=== PATIENT | female | born 1950 | race Two or more races ===

== ENCOUNTER 2019-10-16 12:49 | Outpatient (CLI) | payer OTHER ==
[2019-10-21] MEDS ORDERED: HYDR25TA4 PO (11:24)
[2019-10-21] MEDS ORDERED: ASPI-992 PO (11:24)
== END 2019-10-16 23:59 | disposition home or self-care (01) ==
LOC: LAB 12:49
DX: Z01.812 Encounter for preprocedural laboratory examination (principal); Z11.59 Encounter for screening for other viral diseases
CPT/HCPCS: C9803; U0003

== ENCOUNTER 2019-10-19 05:33 | Inpatient (IN) | payer OTHER ==
[~2019-10-19] VITALS: Ht 162.6 cm; Wt 90.7 kg
[2019-10-19] VITALS (12 sets, daily range): BP systolic 112–132; BP diastolic 52–75
[2019-10-19] MEDS ORDERED: ANESTHESIA TRAY IN PYXIS 1 EA TRAY MC ONE (06:10)
[2019-10-19] MEDS ORDERED: BACITRACIN 50000 UNITS/VIAL ONE (06:10)
[2019-10-19] MEDS ORDERED: HYDROMORPHONE INJ 2 MG/ML DISP.SYRIN ONE (07:06)
[2019-10-19] MEDS ORDERED: TRANEXAMIC ACID 3,000 MG in SODIUM CHLORIDE IRRIG SOLUTION 70 ML IR ONE (07:30)
[2019-10-19] MEDS ORDERED: ONDANSETRON HCL/PF 4 MG/2 ML VIAL IVP PRN (09:30)
[2019-10-19] MEDS ORDERED: BISACODYL SUPP (10 MG) 10 MG/SUPP.RECT SUPP.RECT RC PRN (09:30)
[2019-10-19] MEDS ORDERED: ACETAMINOPHEN 325 MG TABLET PO PRN (09:30)
[2019-10-19] MEDS ORDERED: HYDROCODONE/APAP 5/325MG 1 EACH TABLET PO PRN (09:30)
[2019-10-19] MEDS ORDERED: ZOLPIDEM TARTRATE 5 MG TABLET PO PRN (09:30)
[2019-10-19] MEDS ORDERED: SENNOSIDES 8.6 MG TABLET PO PRN (09:30)
[2019-10-19] MEDS ORDERED: DOCUSATE SODIUM 250 MG CAPSULE PO PRN (09:30)
--- NOTE | 2019-10-19 10:00 | NUR ---
MS/RN OPENING NOTES Received patient from OR. Patient A&O x 2, Divehi speaking. Breathing even and non-labored on 4L oxygen via NC. VSS, afebrile, no SOB noted. No cardiac distress noted. IV access noted on the L AC # 18, patent and intact, and infusing well. Sensation from all peripheral extremities noted. No pain or discomfort at this time. Orders acknowledged in the chart. Will continue to monitor patient. Addendum: 10/19/19 at 1625 by RAULITO LUCIO RN In addition to above, Inventory check list done and noted.
--- NOTE | 2019-10-19 11:00 | NUR ---
MS/RN NOTES Patient remains stable in bed. VSS, afebrile, no SOB noted. Will continue to monitor for any changes of condition.
[2019-10-19] MEDS ORDERED: GLIM2TAB31 PO (11:39)
[2019-10-19] MEDS ORDERED: METF-442 PO (11:39)
[2019-10-19] MEDS ORDERED: HYDR-500 PO (11:39)
[2019-10-19] MEDS ORDERED: MULT1TAB69 PO (11:39)
[2019-10-19] MEDS ORDERED: ATEN1TAB3 PO (11:39)
--- NOTE | 2019-10-19 11:39 | NUR ---
SECONDARY HISTORY TEACHER/MED RECON HOME MEDICATION UPDATED. INFORMATION OBTAINED FROM LARA [phone] DAUGHTER IN LAW. ALSO, LARA CONFIRMED ALLERGY TO MOTRIN WITH UNKNOWN A/R TO ASPIRIN. PRIMARY NURSE AWARE.
[2019-10-19] MEDS: IV D5/0.45 NACL 1,000 ML IV PRN ×2 (11:45→21:37)
--- NOTE | 2019-10-19 12:00 | NUR ---
MS/RN NOTES Patient exhibits no changes in condition. VSS, afebrile, no SOB noted. Will continue to monitor for any changes of condition.
--- NOTE | 2019-10-19 12:50 | NUR ---
MS/RN NOTES Patient complains of 7/10 aching pain on the left knee. Gave norco 2 tablets for pain. Will continue to monitor.
[2019-10-19] MEDS: ANCEF 1 GM/50 ML D5W IV SCH ×4 (15:05→22:42)
[2019-10-19] MEDS ORDERED: MAG HYDROX/AL HYDROX/SIMETH 30 ML UDC PO PRN (16:30)
[2019-10-19] MEDS ORDERED: HYDROMORPHONE 1 MG/1 ML DISP.SYRIN IV ONE (16:30)
[2019-10-19] MEDS ORDERED: diphenhydrAMINE HCL 25 MG CAPSULE PO PRN (16:30)
[2019-10-19] MEDS: FAMOTIDINE (20 MG) 20 MG TABLET PO SCH (16:52)
[2019-10-19] MEDS ORDERED: ENOXAPARIN SODIUM 40 MG/0.4 ML DISP.SYRIN SQ SCH (17:30)
--- NOTE | 2019-10-19 19:00 | NUR ---
MS/RN CLOSING NOTES Patient resting in bed, A&O x 2, Maltese speaking. Patient complaints of 10/10 aching pain on the left leg, gave dilaudid at 1652. Breathing even and non-labored on 2L oxygen via NC, saturating well. No cardiac distress noted. IV access noted on the L AC # 18, patent and intact, and infusing well. Sensation from all peripheral extremities noted. Will endorse to cnc machinist 2nd shift nurse.
--- NOTE | 2019-10-19 19:30 | NUR ---
MS/RN OPENING NOTES RECEIVED PATIENT RESTING IN BED. PATIENT IS ALERT AND ORIENTED X 3. PATIENT IS ABLE TO UNDERSTAND SOME HAITIAN, CANNOT COMMUNICATE IN HAITIAN, CAN MAKE NEEDS KNOWN TO STAFF MEMBERS. PATIENT IS S/P LEFT TOTAL KNEE ARTHROPLASTY, UPON ASSESSMENT PATIENTS DRESS IS INTACT AND NO ACTIVE BLEEDING NOTED. PATIENT HAS COLD PACK APPLIED TO SURGICAL SITE. PATIENTS VITALS SIGNS ARE WITHIN NORMAL LIMITS. IV ACCESS INTACT ON RIGHT AC #18G RUNNING D5 1/2 AT 125 ML/HR. WILL CONTINUE TO MONITOR PATIENT FOR PAIN MANAGEMENT. SAFETY MEASURES ARE IN PLACE, BED IS LOCKED AND PLACED IN THE LOW POSITION, SIDE RAILS UP X3. CALL LIGHT IS WITHIN REACH. WILL CONTINUE TO MONITOR PATIENT THROUGH OUT SHIFT. Addendum: 10/19/19 at 2308 by CLARISSA ARAIZA RN IV ACCESS IS NOTED ON LEFT AC #18G.
[2019-10-19] MEDS: HYDROCODONE/APAP 10/325MG 1 EA TABLET PO PRN (21:37)
--- NOTE | 2019-10-19 21:40 | NUR ---
MS/RN NOTES PATIENT WAS EXPERIENCING PAIN AT SURGICAL SITE, NORCO 10-325 PO WAS GIVEN. WILL CONTINUE TO MONITOR PATIENT.
[2019-10-20] MEDS: HYDROCODONE/APAP 10/325MG 1 EA TABLET PO PRN ×4 (06:03→23:06)
--- NOTE | 2019-10-20 06:05 | NUR ---
MS/RN NOTES PATIENT WAS COMPLAINING OF PAIN AT SURGICAL SITE, LEFT KNEE. NORCO 10-325 PO WAS GIVEN. WILL CONTINUE TO MONITOR PATIENT.
[2019-10-20] MEDS: IV D5/0.45 NACL 1,000 ML IV PRN ×2 (06:11→23:06)
--- NOTE | 2019-10-20 06:30 | NUR ---
MS/RN CLOSING NOTES PATIENT RESTING IN BED. PATIENT IS ALERT AND ORIENTED X 3. PATIENT IS S/P LEFT TOTAL KNEE ARTHROPLASTY 10/18/19, PATIENTS DRESSING IS INTACT AND NO ACTIVE BLEEDING NOTED. IV ACCESS INTACT ON LEFT AC #18G RUNNING D5 /2 AT 125 ML/HR. ALL PATIENTS NEEDS HAVE BEEN MET AND ATTENDED TO DURING SHIFT. SAFETY MEASURES ARE IN PLACE, BED IS LOCKED AND PLACED IN THE LOW POSITION, SIDE RAILS UP X 3. CALL LIGHT IS WITHIN REACH. WILL ENDORSE CARE TO DAY SHIFT.
--- NOTE | 2019-10-20 07:30 | NUR ---
MS RN OPEN NOTES PATIENT IS ALERT RESTING IN BED. NO SIGNS OF DISTRESS WITH 2L OF NASAL CANNULA. IV R AC #18G INTACT RUNNING D5 1/2 NS AT 125ML/HR. PATIENT IS COMFORTABLE LAYING IN BED. BED IS IN LOW POSITION, SIDE RAILS UP X 2 FOR SAFETY. CALL LIGHT WITHIN REACH. WILL CONTINUE TO MONITOR.
[2019-10-20 08:09] VITALS: BP 135/72
[2019-10-20 08:40] LABS: BASOPHILS % (AUTO) 0.2 % (0.0-2.0); EOSINOPHILS % (AUTO) 0.1 % (0.0-6.0); HEMATOCRIT 38 % (33-45); HEMOGLOBIN 12.2 g/dL (11.5-14.8); LYMPHOCYTES # (AUTO) 1.3 /CMM (0.8-4.8); LYMPHOCYTES % (AUTO) 10.7 % (20.0-44.0); MEAN CORPUSCULAR HGB CONC 32 g/dl (31.0-36.0); MEAN CORPUSCULAR VOLUME 89 fL (82-100); MONOCYTES # (AUTO) 0.9 /CMM (0.1-1.30); MONOCYTES % (AUTO) 7.5 % (2.0-12.0); NEUTROPHILS # (AUTO) 9.9 /CMM (1.8-8.9); NEUTROPHILS % (AUTO) 81.5 % (43.0-81.0); PLATELET COUNT (AUTO) 185 /CMM (150-450); RED BLOOD CELL COUNT(AUTO) 4.25 MIL/uL (4.0-5.2); WHITE BLOOD COUNT (AUTO) 12.1 K/uL (4.3-11.0)
[2019-10-20 08:55] LABS: CREATININE 0.7 mg/dL (0.6-1.3); MAGNESIUM 1.7 mg/dL (1.8-2.4); PHOSPHORUS 2.9 mg/dL (2.5-4.9)
[2019-10-20] MEDS: ASPIRIN 325 MG TABLET PO SCH ×2 (09:04→16:59)
[2019-10-20] MEDS: FAMOTIDINE (20 MG) 20 MG TABLET PO SCH ×2 (09:05→16:59)
[2019-10-20 09:16] LABS: POTASSIUM 2.6 mmol/L (3.5-5.1)
--- NOTE | 2019-10-20 09:19 | NUR ---
RN NOTES RECEIVED CRITICAL LEVEL POTASSIUM FROM LAB. INFORMED DR. BENTON PRESENT ON THE FLOOR. ORDERED POTASSIUM CHLORIDE 60 MEQ X 1. ORDERS CLARIFIED AND READ BACK WITH MD. NOTED AND CARRY OUT.
[2019-10-20] MEDS ORDERED: POTASSIUM CHLORIDE 10 MEQ TABLET.SA PO ONE (09:30)
[2019-10-20] MEDS ORDERED: hydrOXYzine 10 MG TABLET PO PRN (09:30)
--- NOTE | 2019-10-20 09:51 | NUR ---
RN NOTES K DUR 10MEQ X 6 TABS NOT ADMINISTERED PHARMACY CHANGED SCHEDULED TO K DUR 20 MEQ X 3 DOSES.
[2019-10-20] MEDS: METFORMIN 500 MG TABLET PO SCH ×2 (09:56→17:03)
[2019-10-20] MEDS: POTASSIUM CHLORIDE 10 MEQ TABLET.SA PO SCH ×3 (09:56→12:57)
[2019-10-20] MEDS ORDERED: hydrOXYzine PAMOATE 25 MG CAPSULE PO PRN (10:00)
[2019-10-20] MEDS ORDERED: DEXTROSE 50%-WATER 50 ML DISP.SYRIN IV PRN (10:30)
--- NOTE | 2019-10-20 10:30 | NUR ---
RN NOTES PATIENT WAS SEEN BY PT AND PLACED CPM MACHINE ON THE LEFT LOWER EXTREMITY. PATIENT TOLERATED WELL.
[2019-10-20] MEDS: ATENOLOL 50 MG TABLET PO SCH (12:04)
[2019-10-20] MEDS: BLOOD SUGAR DIAGNOSTIC 1 EACH STRIP VI SCH ×3 (12:13→21:58)
[2019-10-20] MEDS: HYDROCHLOROTHIAZIDE 25 MG TABLET PO SCH (12:13)
[2019-10-20] MEDS: INSULIN REGULAR, HUMAN 100 UNIT/ML 3 ML VIAL SQ PRN ×2 (12:19→17:15)
--- NOTE | 2019-10-20 14:00 | NUR ---
RN NOTES PATIENT WALKED WITH PT WITH A WALKER. PATIENT TOLERATED WELL.
[2019-10-20] MEDS: HYDROMORPHONE 1 MG/1 ML DISP.SYRIN IV PRN (14:05)
--- NOTE | 2019-10-20 14:15 | NUR ---
RN NOTES PAGE DR. BENTON, TO CLARIFY ORDERS REGARDING ASPIRIN AND LOVENOX IF SHE WANTS BOTH MEDICATIONS GIVEN OR TO DISCONTINUE ONE. AWAITING FOR MD CALL BACK.
[2019-10-20] MEDS ORDERED: NA PHOS,M-B/NA PHOS,DI-BA 1 EA ENEMA RC PRN (14:30)
[2019-10-20] MEDS ORDERED: BISACODYL SUPP (10 MG) 10 MG/SUPP.RECT SUPP.RECT RC PRN (14:30)
--- NOTE | 2019-10-20 14:30 | NUR ---
RN NOTES RECEIVED NEW ORDER FROM TO DISCONTINUE LOVENOX. ORDER WAS READ BACK AND CLARIFIED. ORDER WAS CARRIED OUT.
--- NOTE | 2019-10-20 14:35 | NUR ---
RN NOTE PATIENT SEEM AMD EVALUATED BY DR. RODRIGUEZ, WITH NEW ORDERS MADE. NOTED AND CARRIED OUT.
[2019-10-20] MEDS ORDERED: POTASSIUM CHLORIDE 20 MEQ TAB.PRT.SR PO ONE (15:00)
[2019-10-20 16:12] VITALS: BP 129/71
[2019-10-20] MEDS: Magnesium 1GM/D5W 100ML PREMIX 100 ML IV SCH ×2 (16:14→17:16)
[2019-10-20] MEDS: DOCUSATE SODIUM 100 MG CAPSULE PO SCH (16:59)
--- NOTE | 2019-10-20 19:18 | NUR ---
RN CLOSED NOTES PATIENT IS ORIENTED CALM AND COOPERATIVE. NO SIGNS OF DISTRESS IN 2L OF NASAL CANNULA. IV R AC #18G INTACT RUNNING D5 NS AT 125 MLS/HR. SCHEDULED MEDICATION WERE GIVEN. MAGNESIUM AND POTASSIUM WERE LOW AND BOTH WERE REPLACED ORDERED. PAIN MEDICATION WAS GIVEN SCHEDULED. BED IS IN LOW POSITION WITH SIDE RAILS UP X 2 FOR SAFETY. CALL LIGHT WITHIN REACH. WILL ENDORSE TO THE NEXT SHIFT.
--- NOTE | 2019-10-20 19:45 | NUR ---
rn notes/assessment: transferred pt to room 326-2, with all belongings sent with pt upon transfer to new room. pt s/p left total knee arthroplasty on 10/18, by dr kelly, dressing in placed, c/d/i, no active bleeding noted. lle offloaded on pillow. pt ana speaking, son molly help with translation. pt worked with PT today, cpm 30 degree flexion, pt able to stand up/get out of bed, but not safe ambulating per notes. safety precautions for fall initiated, call light in reach, will continue monitoring pt.
[2019-10-20 20:00] VITALS: BP 120/59
--- NOTE | 2019-10-20 20:32 | NUR ---
rn notes: spoked with son molly 3x on the phone to translate for the pt. pt inisiting to get up and walk to the bathroom to void, however per PT not safe to ambulate yet, only offer bedpan and will come back for therapy again tomorrow. pt kept holding her urine. placed on bed reynolds 3x, even switch chief inspector to female, but still pt uncooperative. son hang up the phone already. legal intern made aware
[2019-10-20] MEDS: *INSULIN REGULAR(HUMULIN R)HUM 100 UNIT/ML VIAL SQ PRN (21:59)
--- NOTE | 2019-10-20 22:27 | NUR ---
rn notes: pt has no urine output for 4hrs, bladder scan performed showing 910ml, notified epic md director of communications, per md to put indwelling shin catheter. order read back, verified and carried out.
--- NOTE | 2019-10-20 23:07 | NUR ---
prn norco 10/325: pt c/o post op pain left knee, s/p left knee arthroplasty on 10/26, requesting for pain medication, prn norco 10/325 mg tab po administered to pt at this time. all communications translated in ana language with help of pt's daughter, spoke over the phone.
--- NOTE | 2019-10-20 23:23 | NUR ---
rn notes: assisted roving frame tender in providing bed bath and complete linen change to pt. all communication translated in ana with help of pt's daughter.
--- NOTE | 2019-10-21 02:00 | NUR ---
rn notes: pt sleeping, appears calm and comfortable, no facial grimace noted, pt remains on 3l oxygen. lle offloaded on pillows. call light within reach,
[2019-10-21] MEDS: BLOOD SUGAR DIAGNOSTIC 1 EACH STRIP VI SCH ×4 (06:27→22:27)
[2019-10-21] MEDS: INSULIN REGULAR, HUMAN 100 UNIT/ML 3 ML VIAL SQ PRN ×2 (06:29→12:31)
--- NOTE | 2019-10-21 06:50 | NUR ---
end of shift report: prn norco 10/325 mg tab po administered to pt for c/o 10/26 post op pain. pt remains on 3L oxygen via nc. iv access remains patent and flushing well, infusing with d5 1/2 ns at 125ml/hr. remains with shin catheter, bag draining via gravity. lle offloaded on pillows. dressing c/d/i, no active bleeding noted. PLAN OF CARE: DC plan home vs ARU. Cleared from ortho, f/u with dr pritchett in 1-2 weeks. okay for rn to change dressing per md order. vs remains stable, needs attended. safety precautions for fall remains engaged, call light in reach, will endorse to day rn for continuity of care.
--- NOTE | 2019-10-21 07:50 | NUR ---
ms rn received on bed,awake,alert,oriented x3,little lethargic,not in any form of distress, respirations even and unlabored,no sob noted.left leg surgery w/ dressing dry and intact,denies pain at this time,all needs attended.
[2019-10-21 08:15] LABS: BASOPHILS # (AUTO) 0.1 /CMM (0.0-0.2); BASOPHILS % (AUTO) 0.4 % (0.0-2.0); CREATININE 0.6 mg/dL (0.6-1.3); EOSINOPHILS % (AUTO) 1.1 % (0.0-6.0); HEMATOCRIT 33 % (33-45); HEMOGLOBIN 10.7 g/dL (11.5-14.8); LYMPHOCYTES # (AUTO) 1.6 /CMM (0.8-4.8); LYMPHOCYTES % (AUTO) 10.4 % (20.0-44.0); MAGNESIUM 1.8 mg/dL (1.8-2.4); MEAN CORPUSCULAR HGB CONC 33 g/dl (31.0-36.0); MEAN CORPUSCULAR VOLUME 88 fL (82-100); MONOCYTES % (AUTO) 6.4 % (2.0-12.0); NEUTROPHILS # (AUTO) 12.6 /CMM (1.8-8.9); NEUTROPHILS % (AUTO) 81.7 % (43.0-81.0); PHOSPHORUS 1.4 mg/dL (2.5-4.9); PLATELET COUNT (AUTO) 160 /CMM (150-450); RED BLOOD CELL COUNT(AUTO) 3.71 MIL/uL (4.0-5.2); WHITE BLOOD COUNT (AUTO) 15.5 K/uL (4.3-11.0)
[2019-10-21 08:17] VITALS: BP 117/61
[2019-10-21 08:24] LABS: CALCIUM, SERUM 8.1 mg/dL (8.5-10.1)
[2019-10-21 08:28] LABS: POTASSIUM 2.8 mmol/L (3.5-5.1)
[2019-10-21] MEDS ORDERED: ATENOLOL/CHLORTHALIDONE 1 TAB TABLET PO SCH (09:00)
--- NOTE | 2019-10-21 09:40 | NUR ---
ms patterson breakfast served,due meds given,tolerated well.
--- NOTE | 2019-10-21 09:55 | NUR ---
ms rn received a critical level for potassium and phosphorus, reported to dr. severo blank/ orders made and carried out.
[2019-10-21] MEDS: GLIMEPIRIDE 1 MG TABLET PO SCH (09:59)
[2019-10-21] MEDS: HYDROMORPHONE 1 MG/1 ML DISP.SYRIN IV PRN (09:59)
[2019-10-21] MEDS: FAMOTIDINE (20 MG) 20 MG TABLET PO SCH ×2 (09:59→17:24)
[2019-10-21] MEDS: ASPIRIN 325 MG TABLET PO SCH ×2 (09:59→17:24)
[2019-10-21] MEDS: MULTIVIT W/MINERALS 1 TAB TABLET PO SCH (10:00)
[2019-10-21] MEDS: METFORMIN 500 MG TABLET PO SCH ×2 (10:00→17:24)
[2019-10-21] MEDS: DOCUSATE SODIUM 100 MG CAPSULE PO SCH ×2 (10:00→17:24)
[2019-10-21] MEDS: HYDROCHLOROTHIAZIDE 25 MG TABLET PO SCH (10:01)
[2019-10-21] MEDS: ATENOLOL 50 MG TABLET PO SCH (10:04)
--- NOTE | 2019-10-21 10:20 | NUR ---
ms rn was seen by dr. severo blank/ orders made and carried out.
[2019-10-21] MEDS ORDERED: HYDR25TA4 PO (11:24)
[2019-10-21] MEDS ORDERED: ASPI-992 PO (11:24)
[2019-10-21] MEDS ORDERED: K PHOS NEUTRAL 250 MG TABLET PO ONE (12:00)
[2019-10-21] MEDS: POTASSIUM CHLORIDE 20 MEQ TAB.PRT.SR PO SCH ×3 (12:20→15:57)
--- NOTE | 2019-10-21 15:30 | NUR ---
ms rn relayed cxr result to dr. elkins, waiting for her to reply.
[2019-10-21 16:00] VITALS: BP 139/60
[2019-10-21] MEDS: IV D5/0.45 NACL 1,000 ML IV PRN (18:45)
[2019-10-21] MEDS ORDERED: CEFTRIAXONE 1GM BAG (ER ONLY) 1 GM/50 ML PIGGYBACK IV SCH (19:30)
[2019-10-21] MEDS ORDERED: AZITHROMYCIN 500 MG in IV D5W 250 ML IV SCH ×2 (19:30→20:00)
--- NOTE | 2019-10-21 19:36 | NUR ---
MS RN OPENING NOTES PATIENT AWAKE IN BED. A/OX3. PRIMARY LANGUAGE JANAE. ON 3L NC. NO S/S OF ACUTE RESPIRATORY DISTRESS; BREATHING IS EVEN AND UNLABORED. NO S/S OF PAIN NOTED. IV PRESENT ON LEFT AC, SIZE 18, INTACT & PATENT WITH D5 1/2 NS RUNNING AT 125 ML/HR. LEFT KNEE DRESSING DRY AND INTACT; ELEVATED ON PILLOW. SAFETY MEASURES IN PLACE AND PATIENT'S NEEDS MET. BED LOCKED, ALARM ON, SIDE RAILS X2, CALL LIGHT WITHIN REACH. WILL CONTINUE TO MONITOR.
--- NOTE | 2019-10-21 19:50 | NUR ---
MS RN NOTES SCHEDULED IVPB ROCEPHIN 1G NOT STOCKED IN MED ROOM; CALLED PHARMACY, NO RESPONSE. AWAITING FOR CHARGE NURSE TO OVERRIDE MEDICATION IN [facility].
[2019-10-21 20:00] VITALS: BP_SYST 123; BP_DIAS 71; BP_DIAS 72
--- NOTE | 2019-10-21 20:10 | NUR ---
MS RN NOTES SCHEDULED IVPB ZITHROMAX NOT STOCKED IN MED ROOM. FAXED MED ORDER TO NURSING JUNIOR ANALYST TO PULL FROM NIGHT LOCKER. AWAITING MEDICATION.
[2019-10-21] MEDS ORDERED: AZITHROMYCIN 500 MG VIAL ONE (20:26)
[2019-10-21] MEDS ORDERED: CEFTRIAXONE 1 G VIAL ONE (20:32)
[2019-10-21] MEDS: CEFTRIAXONE 1 G in IV D5W 50 ML IV SCH (20:36)
[2019-10-21] MEDS: HYDROCODONE/APAP 10/325MG 1 EA TABLET PO PRN (20:59)
--- NOTE | 2019-10-21 21:07 | NUR ---
MS RN NOTES PATIENT SENT DOWN TO RADIOLOGY FOR CT PULMONARY ANGIOGRAM. CONSENT ATTAINED FROM SON, NAVIN, VIA TELPHONE. PATIENT TRANSFERRED VIA GURNEY.
[2019-10-21] MEDS ORDERED: IOHEXOL-350 100 ML VIAL IV ONE (21:11)
[2019-10-21] MEDS ORDERED: IV NS 0.9% 250 ML IV ONE (21:13)
--- NOTE | 2019-10-21 21:32 | NUR ---
MS RN NOTES PATIENT BACK FROM CT
[2019-10-22 06:31] LABS: BASOPHILS % (AUTO) 0.3 % (0.0-2.0); EOSINOPHILS % (AUTO) 2.6 % (0.0-6.0); HEMATOCRIT 31 % (33-45); LYMPHOCYTES # (AUTO) 1.3 /CMM (0.8-4.8); LYMPHOCYTES % (AUTO) 10.2 % (20.0-44.0); MEAN CORPUSCULAR HGB CONC 33 g/dl (31.0-36.0); MEAN CORPUSCULAR VOLUME 88 fL (82-100); MONOCYTES % (AUTO) 7.7 % (2.0-12.0); NEUTROPHILS # (AUTO) 10.3 /CMM (1.8-8.9); NEUTROPHILS % (AUTO) 79.2 % (43.0-81.0); PLATELET COUNT (AUTO) 154 /CMM (150-450); RED BLOOD CELL COUNT(AUTO) 3.47 MIL/uL (4.0-5.2)
[2019-10-22] MEDS: BLOOD SUGAR DIAGNOSTIC 1 EACH STRIP VI SCH ×4 (06:32→22:12)
[2019-10-22] MEDS: INSULIN REGULAR, HUMAN 100 UNIT/ML 3 ML VIAL SQ PRN ×2 (06:33→12:53)
[2019-10-22 06:37] LABS: CALCIUM, SERUM 8.4 mg/dL (8.5-10.1); CREATININE 0.7 mg/dL (0.6-1.3); MAGNESIUM 1.9 mg/dL (1.8-2.4); PHOSPHORUS 1.7 mg/dL (2.5-4.9)
[2019-10-22 06:44] LABS: APPEARANCE,URINE CLEAR (CLEAR); BILIRUBIN,URINE NEGATIVE (NEGATIVE); BLOOD, URINE MODERATE Ery/uL (NEGATIVE); COLOR,URINE YELLOW (YELLOW); KETONES,URINE NEGATIVE (NEGATIVE); LEUKOCYTE ESTERASE ,URINE NEGATIVE (NEGATIVE); NITRITE, URINE NEGATIVE (NEGATIVE); PH,URINE 6.5 (5.0-8.0); PROTEIN,URINE NEGATIVE (NEGATIVE); UGLUCOSE NEGATIVE (NEGATIVE); UROBILINOGEN,URINE 0.2 EU/dL (0.2)
[2019-10-22 06:48] LABS: POTASSIUM 2.6 mmol/L (3.5-5.1)
--- NOTE | 2019-10-22 06:52 | NUR ---
MS RN NOTES RECEIVED CRITICAL LAB RESULTS. CO2 LEVEL IS 42 AND POTASSIUM LEVEL IS 2.6. MANAGER OF DEVELOPMENT FIRMWARE DEVELOPER, PAIGE MAYER MADE AWARE
[2019-10-22] MEDS ORDERED: POTASSIUM CHLORIDE 10 MEQ/50 ML PREMIXED IVPB FOR PERIPHERAL LINE IV ONE (07:00)
--- NOTE | 2019-10-22 07:02 | NUR ---
MS RN NOTES RECEIVED ORDERS VIA TELEPHONE FOR 80 MEQ POTASSIUM IV OVER 5 HOURS FROM [employer], PAIGE MAYER.
--- NOTE | 2019-10-22 07:08 | NUR ---
MS RN NOTES VERIFIED ORDER FOR 80 MEQ POTASSIUM IV OVER 5 HOURS WITH PHARMACY. PER ALECIA, ONLY AVAILABLE REPLACEMENT FOR IV IS 10 MEQ PER 50 ML IVPB
[2019-10-22 07:16] LABS: BACTERIA,URINE Rare /HPF (None Seen); SQUAMOUS EPITHELIAL CELL,UR Rare /HPF (None Seen); WBC,URINE 0-2 /HPF (0-3)
--- NOTE | 2019-10-22 07:35 | NUR ---
MS RN NOTES RECEIVED PT IN BED, ASLEEP, EASILY AROUSED, A/O X3-4. JANAE SPEAKING ONLY, TRANSLATES BY SON/KANDICED THROUGH THE PHONE. PT ON SUPPLEMENTARY OXYGEN AT 3L VIA NC, WITH NO ACUTE RESPIRATORY DISTRESS NOTED. PT DENIES ANY PAIN OR DISCOMFORT AT THIS TIME. IVF D5 1/2 NS AT 125ML/HR TO LAC G18, INTACT AND FLUID INFUSING WELL. PER NIGHT NURSE POTASSIUM LEVEL AT 2.6 REPORTED TO IZZY LEWIS AND ORDERS RECEIVED; WILL ADMINISTER REPLACEMENT TODAY. FC IN PLACE WITH CLEAR YELLOW URINE. PT KEPT COMFORTABLE. CALL LIGHT KEPT WITHIN REACH. PT'S BED IN LOWEST, LOCKED POSITION WITH SRX3. WILL CONTINUE PLAN OF CARE.
--- NOTE | 2019-10-22 07:36 | NUR ---
MS RN CLOSING NOTES PATIENT SLEEPING IN BED. A/OX3. ON 3L NC. NO S/S OF ACUTE RESPIRATORY DISTRESS; BREATHING IS EVEN AND UNLABORED. NO S/S OF PAIN NOTED. IV PRESENT ON LEFT AC, SIZE 18, INTACT & PATENT. LEFT KNEE DRESSING DRY AND INTACT. SAFETY MEASURES IN PLACE AND PATIENT'S NEEDS MET. BED LOCKED, ALARM ON, SIDE RAILS X2, CALL LIGHT WITHIN REACH. WILL ENDORSE TO DAY SHIFT NURSE PLAN OF CARE.
[2019-10-22 08:00] VITALS: BP 125/71
[2019-10-22] MEDS: MULTIVIT W/MINERALS 1 TAB TABLET PO SCH (09:16)
[2019-10-22] MEDS: FAMOTIDINE (20 MG) 20 MG TABLET PO SCH ×2 (09:16→16:54)
[2019-10-22] MEDS: ASPIRIN 325 MG TABLET PO SCH ×2 (09:16→16:53)
[2019-10-22] MEDS: DOCUSATE SODIUM 100 MG CAPSULE PO SCH ×2 (09:16→16:53)
[2019-10-22] MEDS: GLIMEPIRIDE 1 MG TABLET PO SCH (09:16)
[2019-10-22] MEDS: ATENOLOL 50 MG TABLET PO SCH (09:17)
[2019-10-22] MEDS: POTASSIUM CL. PREMIX PERIPHER. 50 ML IV SCH ×8 (09:17→19:54)
[2019-10-22 09:29] VITALS: BP 125/71
[2019-10-22] MEDS ORDERED: MAGNESIUM HYDROXIDE 30 ML UDC PO PRN (10:00)
[2019-10-22] MEDS: METFORMIN 500 MG TABLET PO SCH ×2 (10:03→16:54)
[2019-10-22] MEDS ORDERED: K PHOS NEUTRAL 250 MG TABLET PO ONE (11:00)
--- NOTE | 2019-10-22 13:00 | NUR ---
MS RN NOTES PT REFUSED INSULIN 2U. WILL CONTINUE TO MONITOR.
[2019-10-22] MEDS ORDERED: FUROSEMIDE 40 MG/4 ML VIAL IV ONE (14:30)
[2019-10-22 16:00] VITALS: BP 132/72
--- NOTE | 2019-10-22 17:15 | NUR ---
MS RN NOTES FOUND A BOTTLE OF MEDICINE/METFORMIN AT BEDSIDE. INSTRUCTED SON/NAVIN OVER THE PHONE TO TRANSLATE REGARDING HOLDING METFOMIN DOSE UNTIL THE 7TH. DUE TO RECENT PROCEDURE OF CT LAST NIGHT WITH CONTRAST. RISK AND BENEFITS MADE AWARE. MEDICINE SENT TO PHARMACY TO KEEP. WILL CONTINUE TO MONITOR.
--- NOTE | 2019-10-22 17:49 | NUR ---
MS RN NOTES PT REFUSED INSULIN 2U. WILL CONTINUE TO MONITOR.
--- NOTE | 2019-10-22 18:55 | NUR ---
MS RN NOTES PT IN BED, ASLEEP, AWAKE, A/O X3-4. PT ON SUPPLEMENTARY OXYGEN AT 2L VIA NC, WITH NO ACUTE RESPIRATORY DISTRESS NOTED. PT DENIES ANY PAIN OR DISCOMFORT AT THIS TIME. PIC TO LAC G18, FLUSHED WITH NS, INTACT AND OPERATIONAL. ALL NEEDS AND CARE ATTENDED. FC IN PLACE WITH CLEAR YELLOW URINE. PT KEPT COMFORTABLE. CALL LIGHT KEPT WITHIN REACH. PT'S BED IN LOWEST, LOCKED POSITION WITH SRX3. WILL ENDORSE TO INCOMING NIGHT NURSE FOR CLAIRE.
--- NOTE | 2019-10-22 19:43 | NUR ---
MS RN OPENING NOTES PATIENT AWAKE IN BED. A/OX3. PRIMARY LANGUAGE JANAE. ON 3L NC. NO S/S OF ACUTE RESPIRATORY DISTRESS; BREATHING IS EVEN AND UNLABORED. NO S/S OF PAIN NOTED. IV PRESENT ON LEFT AC, SIZE 18, INTACT & PATENT. LEFT KNEE DRESSING DRY AND INTACT; ELEVATED ON PILLOW. SAFETY MEASURES IN PLACE AND PATIENT'S NEEDS MET. BED LOCKED, ALARM ON, SIDE RAILS X2, CALL LIGHT WITHIN REACH. WILL CONTINUE TO MONITOR
[2019-10-22 20:00] VITALS: BP 110/81
[2019-10-22] MEDS: AZITHROMYCIN 500 MG in IV D5W 250 ML IV SCH (21:03)
[2019-10-22] MEDS: CEFTRIAXONE 1 G in IV D5W 50 ML IV SCH (22:01)
[2019-10-22] MEDS: *INSULIN REGULAR(HUMULIN R)HUM 100 UNIT/ML VIAL SQ PRN (22:14)
[2019-10-23] MEDS: BLOOD SUGAR DIAGNOSTIC 1 EACH STRIP VI SCH ×4 (06:31→22:05)
[2019-10-23] MEDS: INSULIN REGULAR, HUMAN 100 UNIT/ML 3 ML VIAL SQ PRN ×2 (06:34→12:17)
[2019-10-23 06:54] LABS: BASOPHILS # (AUTO) 0.1 /CMM (0.0-0.2); BASOPHILS % (AUTO) 0.4 % (0.0-2.0); EOSINOPHILS % (AUTO) 1.6 % (0.0-6.0); HEMATOCRIT 32 % (33-45); HEMOGLOBIN 10.4 g/dL (11.5-14.8); LYMPHOCYTES # (AUTO) 1.9 /CMM (0.8-4.8); LYMPHOCYTES % (AUTO) 14.9 % (20.0-44.0); MEAN CORPUSCULAR HGB CONC 33 g/dl (31.0-36.0); MEAN CORPUSCULAR VOLUME 88 fL (82-100); MONOCYTES # (AUTO) 1.2 /CMM (0.1-1.30); MONOCYTES % (AUTO) 8.8 % (2.0-12.0); NEUTROPHILS # (AUTO) 9.7 /CMM (1.8-8.9); NEUTROPHILS % (AUTO) 74.3 % (43.0-81.0); PLATELET COUNT (AUTO) 184 /CMM (150-450); RED BLOOD CELL COUNT(AUTO) 3.61 MIL/uL (4.0-5.2); WHITE BLOOD COUNT (AUTO) 13.1 K/uL (4.3-11.0)
[2019-10-23 07:10] LABS: ALBUMIN 2.5 g/dL (3.4-5.0); BILIRUBIN,TOTAL 0.7 mg/dL (0.2-1.0); CALCIUM, SERUM 8.9 mg/dL (8.5-10.1); CREATININE 0.5 mg/dL (0.6-1.3); MAGNESIUM 2.1 mg/dL (1.8-2.4); PHOSPHORUS 2.3 mg/dL (2.5-4.9); POTASSIUM 3.2 mmol/L (3.5-5.1); TOTAL PROTEIN, SERUM 7.2 g/dL (6.4-8.2)
--- NOTE | 2019-10-23 07:35 | NUR ---
MS RN CLOSING NOTES PATIENT AWAKE IN BED. ON 3L NC. NO S/S OF ACUTE RESPIRATORY DISTRESS; BREATHING IS EVEN AND UNLABORED. NO S/S OF PAIN NOTED. IV PRESENT ON LEFT AC, SIZE 18, INTACT & PATENT, HEP LOCKED. LEFT KNEE DRESSING DRY AND INTACT; ELEVATED ON PILLOW. SAFETY MEASURES IN PLACE AND PATIENT'S NEEDS MET. BED LOCKED, ALARM ON, SIDE RAILS X2, CALL LIGHT WITHIN REACH. WILL ENDORSE TO DAY SHIFT NURSE PLAN OF CARE.
--- NOTE | 2019-10-23 07:39 | NUR ---
rn notes patient received on 2L nasal cannula, no sob noted, patient shows no s/s of pain at this time. F/C present at this time and is draining. L AC 18 saline lock. Plan is to hold metformin until 10/[address] pulmonary that was done. bed at the lowest setting, call light within reach, side rails up x2.
[2019-10-23] MEDS: MULTIVIT W/MINERALS 1 TAB TABLET PO SCH (08:47)
[2019-10-23] MEDS: GLIMEPIRIDE 1 MG TABLET PO SCH (08:48)
[2019-10-23] MEDS: DOCUSATE SODIUM 100 MG CAPSULE PO SCH ×2 (08:48→16:53)
[2019-10-23] MEDS: ASPIRIN 325 MG TABLET PO SCH ×2 (08:48→16:53)
[2019-10-23] MEDS: METFORMIN 500 MG TABLET PO SCH ×2 (08:48→15:51)
[2019-10-23] MEDS: FAMOTIDINE (20 MG) 20 MG TABLET PO SCH ×2 (08:48→16:53)
[2019-10-23] MEDS: ATENOLOL 50 MG TABLET PO SCH (08:48)
[2019-10-23] MEDS ORDERED: K PHOS NEUTRAL 250 MG TABLET PO ONE (09:00)
[2019-10-23 09:20] VITALS: BP 138/68
[2019-10-23] MEDS: POTASSIUM CHLORIDE 20 MEQ TAB.PRT.SR PO SCH ×2 (09:57→10:47)
[2019-10-23 13:13] LABS: ABG BASE EXCESS 13.2 mmol/L; ABG OXYGEN SATURATION 82.5 % (92.0-98.5); ABG PCO2 52.3 mmHg (35.0-45.0); ABG PH 7.484 (7.350-7.450); ABG PO2 40.8 mmHg (75.0-100.0); AaDO2 46.3 mmHg; COHb 1.5 % (0.5-1.5); O2Hb 81.3 % (94.0-97.0); SITE, ABG Left Radial; VENT MODE, BG ROOM AIR
[2019-10-23 14:54] LABS: ABG OXYGEN SATURATION 95.1 % (92.0-98.5); ABG PCO2 55.8 mmHg (35.0-45.0); ABG PO2 67.8 mmHg (75.0-100.0); COHb 1.1 % (0.5-1.5); MetHb 0.3 % (0.0-1.5); O2Hb 93.8 % (94.0-97.0); SITE, ABG Left Radial
[2019-10-23 15:58] VITALS: BP 135/61
--- NOTE | 2019-10-23 17:59 | NUR ---
yesenia notes patient remains on 2L nasal cannula, no sob noted, patient shows no s/s of pain at this time. F/C present at this time and is draining. L AC 18 saline lock. Plan is to hold metformin until 10/[address] pulmonary that was done. bed at the lowest setting, call light within reach, side rails up x2. ABG results sent to Dr. Bhardwaj and ARMANDO elkins. Addendum: 10/23/19 at 1800 by JUAN JOSÉ HORTON RN yesenia delacruz f/c removed
[2019-10-23] MEDS: AZITHROMYCIN 500 MG in IV D5W 250 ML IV SCH (19:56)
[2019-10-23 20:00] VITALS: BP_SYST 101; BP_SYST 151; BP_DIAS 63; BP_DIAS 77
--- NOTE | 2019-10-23 20:00 | NUR ---
MS RN OPENING NOTE: Patient in bed resting comfortably. Patient denies pain or discomfort. She is AOx3 and her primary language in [facility]. On 2L NC. Tolerating Oxygen well. No SOB. Breathing unlabored and equal. Noted left AC IV #18; patent, no redness, or infiltration. . Safety measure in place; bed in lowest position, side rails x 2 are up, brakes are on, alarm is on, and call light is within reach. Will continue care of plan.
[2019-10-23] MEDS: CEFTRIAXONE 1 G in IV D5W 50 ML IV SCH (21:54)
[2019-10-23] MEDS: *INSULIN REGULAR(HUMULIN R)HUM 100 UNIT/ML VIAL SQ PRN (22:10)
--- NOTE | 2019-10-24 06:00 | NUR ---
MS RN CLOSING NOTE: Patient in bed resting comfortably. Tolerating Oxygen well. No SOB. Breathing unlabored and equal. Safety measure in place; bed in lowest position, side rails x 2 are up, brakes are on, alarm is on, and call light is within reach. Will endorse to next shift.
[2019-10-24] MEDS: BLOOD SUGAR DIAGNOSTIC 1 EACH STRIP VI SCH ×3 (06:39→16:55)
[2019-10-24] MEDS: INSULIN REGULAR, HUMAN 100 UNIT/ML 3 ML VIAL SQ PRN (06:43)
[2019-10-24 08:00] VITALS: BP 136/74
--- NOTE | 2019-10-24 08:00 | NUR ---
MS/RN - Assessment Patient is awake, A/O x 3-4, Yohannes speaking only, spoke with son to translate, uses supplemental oxygen at 2lpm via NC, SpO2 97%, afebrile overnight, POD#5 left TKA, left knee dressing is intact, denies numbness and tingling sensation on LLE, able to wiggle toes. Labs reviewed, noted with potassium 2.9, will notify Dr. Moran. Discharge home today once home oxygen is delivered. Supa Shearer aware of discharge plan. Will continue with current medical management.
[2019-10-24] MEDS: MULTIVIT W/MINERALS 1 TAB TABLET PO SCH (08:13)
[2019-10-24] MEDS: FAMOTIDINE (20 MG) 20 MG TABLET PO SCH ×2 (08:13→16:10)
[2019-10-24] MEDS: METFORMIN 500 MG TABLET PO SCH ×2 (08:13→16:10)
[2019-10-24] MEDS: GLIMEPIRIDE 1 MG TABLET PO SCH (08:13)
[2019-10-24] MEDS: DOCUSATE SODIUM 100 MG CAPSULE PO SCH ×2 (08:13→16:10)
[2019-10-24] MEDS: ATENOLOL 50 MG TABLET PO SCH (08:13)
[2019-10-24] MEDS: ASPIRIN 325 MG TABLET PO SCH ×2 (08:13→16:10)
[2019-10-24] MEDS: HYDROCODONE/APAP 10/325MG 1 EA TABLET PO PRN (08:20)
[2019-10-24 08:40] LABS: BASOPHILS % (AUTO) 0.2 % (0.0-2.0); EOSINOPHILS % (AUTO) 2.1 % (0.0-6.0); HEMATOCRIT 33 % (33-45); HEMOGLOBIN 10.5 g/dL (11.5-14.8); LYMPHOCYTES # (AUTO) 1.5 /CMM (0.8-4.8); LYMPHOCYTES % (AUTO) 13.3 % (20.0-44.0); MEAN CORPUSCULAR HGB CONC 32 g/dl (31.0-36.0); MEAN CORPUSCULAR VOLUME 88 fL (82-100); MONOCYTES # (AUTO) 1.1 /CMM (0.1-1.30); NEUTROPHILS # (AUTO) 8.3 /CMM (1.8-8.9); NEUTROPHILS % (AUTO) 74.4 % (43.0-81.0); PLATELET COUNT (AUTO) 207 /CMM (150-450); RED BLOOD CELL COUNT(AUTO) 3.68 MIL/uL (4.0-5.2); WHITE BLOOD COUNT (AUTO) 11.2 K/uL (4.3-11.0)
[2019-10-24 09:09] LABS: CALCIUM, SERUM 9.2 mg/dL (8.5-10.1); CREATININE 0.6 mg/dL (0.6-1.3); MAGNESIUM 2.1 mg/dL (1.8-2.4); PHOSPHORUS 3.9 mg/dL (2.5-4.9); POTASSIUM 2.9 mmol/L (3.5-5.1)
[2019-10-24] MEDS ORDERED: POTASSIUM CHLORIDE 20 MEQ TAB.PRT.SR PO ONE ×2 (14:00→16:00)
[2019-10-24 16:00] VITALS: BP 138/78
--- NOTE | 2019-10-24 19:35 | NUR ---
MS/RN - End of shift summary Patient is alert and oriented throughout the shift, afebrile, denies pain, blood sugar controlled, potassium replacement given, stable for discharge home with home health tonight. Reviewed discharge instructions with marco Shearer over the phone and he verbalized full understanding including f/u care with Dr. Mckeon in 1-2 weeks. Home health arranged with [facility] and [facility] will be providing the DMEs. E-prescription was sent to patient's preferred pharmacy. All discharge papers done. Portable home concentrator at bedside. Saline lock removed on the LAC. Endorsed to night RN for completion of discharge.
--- NOTE | 2019-10-24 19:53 | NUR ---
MS RN NOTES PATIENT IN BED, RESTING, ALERT AND ORIENTED X 3. RESTING COMFORTABLY. BREATHING EVEN AND UNLABORED ON NC 2L. SHOWS NO SIGNS INFILTRATION, NO REDNESS. AWAITING FOR FAMILY MEMBERS TO SANDWICH MAKER PT. BELONGINGS ARE AT BEDSIDE. WILL CONTINUE TO MONITOR
--- NOTE | 2019-10-24 21:57 | NUR ---
MS RN NOTES PT PICKED UP BY FAMILY. TAKEN DOWNSTAIRS BY WHEELCHAIR WITH NURSE AND LINE SUPPLY. PT ABLE TO AMBULATE WITH WALKER INTO CAR.
== END 2019-10-24 21:35 | disposition home health service (06) | DRG 302 ==
LOC: DS 05:33 → MED 05:35
PROVIDERS: ADMIT Student in an Organized Health Care Education/Training Program; ATTEND Nurse Practitioner Acute Care
PROC: 0SRD0J9 Replacement of Left Knee Joint with Synthetic Substitute, Cemented, Open Approach (ICD-10-PCS; principal; 2019-10-19)
DX: M17.12 Unilateral primary osteoarthritis, left knee (principal); J96.22 Acute and chronic respiratory failure with hypercapnia; D63.8 Anemia in other chronic diseases classified elsewhere; E83.42 Hypomagnesemia; E66.2 Morbid (severe) obesity with alveolar hypoventilation; E11.9 Type 2 diabetes mellitus without complications; E87.1 Hypo-osmolality and hyponatremia; D72.829 Elevated white blood cell count, unspecified; E78.5 Hyperlipidemia, unspecified; I10 Essential (primary) hypertension; J44.9 Chronic obstructive pulmonary disease, unspecified; E87.6 Hypokalemia; M19.90 Unspecified osteoarthritis, unspecified site; Z68.34 Body mass index [BMI] 34.0-34.9, adult; K59.09 Other constipation; J31.0 Chronic rhinitis; Z88.6 Allergy status to analgesic agent; T50.2X5A Adverse effect of carbonic-anhydrase inhibitors, benzothiadiazides and other diuretics, initial encounter; Y92.89 Other specified places as the place of occurrence of the external cause
CPT/HCPCS: 36415; 36600; 71045-TC; 80048-TC; 80053-TC; 81000-TC; 82803-TC; 82962-TC; 83735-TC; 84100-TC; 85025-TC; 86850-TC; 86921-TC; 87081-TC; 88305-TC; 88311-TC; 93307-TC; 94799-TC; 97110-TC; 97112-TC; 97116-TC; 97530-TC; 97760-TC; A4217; C1713; C1776; G0378; J0456; J0690; J0696; J1100; J1170; J1650; J1815; J1940; J2405; J2704; J3475; J3480; J3490; J7030; J7050; J7060; L1830; Q9967; U0003-CS

== ENCOUNTER 2021-12-01 09:21 | Outpatient (CLI) | payer OTHER ==
[~2021-12-01 09:21] MED LIST: ASPI-992 PO; ATEN1TAB3 PO; GLIM2TAB31 PO; HYDR-500 PO; HYDR25TA4 PO; METF-442 PO; MULT1TAB70 PO
[2021-12-10] MEDS ORDERED: HYDR-4303 PO (09:52)
[2021-12-10] MEDS ORDERED: ASPI-992 PO (09:52)
== END 2021-12-01 23:59 | disposition home or self-care (01) ==
LOC: LAB 09:21
PROVIDERS: ATTEND Specialist
DX: Z01.812 Encounter for preprocedural laboratory examination (principal); Z20.822 Contact with and (suspected) exposure to COVID-19
CPT/HCPCS: U0003; C9803

== ENCOUNTER 2021-12-08 05:03 | Inpatient (IN) | payer OTHER ==
[~2021-12-08] VITALS: Ht 162.6 cm; Wt 91.6 kg
[2021-12-08] VITALS (12 sets, daily range): BP systolic 110–175; BP diastolic 60–83
[2021-12-08] MEDS ORDERED: ANESTHESIA TRAY IN PYXIS 1 EA TRAY MC ONE ×2 (05:44→13:09)
--- NOTE | 2021-12-08 06:00 | NUR ---
MS RN NOTES RECEIVED FROM ADMITTING,AMBULATORY,ACCOMPANIED BY ADMITTING STAFF,PATIENT GOING FOR ARTHROTOMY WITH TOTAL RIGHT KNEE ARTHROPLASTY,SUBCUTANEOUS LATERAL RELEASE BY DR MALDONADO.ALERT,ORIENTED X4,SHE'S FROM [place],SPEAK PANJABI.NO SKIN ISSUES,WITH KNOWN HX OF DIABETES,RAPID COVID TESTING DONE,MRSA SWAB DONE.VITAL SIGNS STABLE.
[2021-12-08] MEDS ORDERED: BUPIVACAINE MPF 0.5% W/EPI INJ 30 ML VIAL ONE (06:12)
[2021-12-08] MEDS ORDERED: PROPOFOL 100 ML ONE (06:12)
[2021-12-08] MEDS ORDERED: TRANEXAMIC ACID 3,000 MG in SODIUM CHLORIDE IRRIG SOLUTION 70 ML IR ONE (06:30)
[2021-12-08] MEDS ORDERED: POLYMYXIN B SULFATE 500,000 UNITS ONE (06:57)
[2021-12-08] MEDS ORDERED: FENTANYL PF 250MCG/5ML AMPUL ONE (08:09)
[2021-12-08] MEDS ORDERED: FENTANYL PF 100MCG/2ML AMPUL ONE ×2 (08:09→09:43)
[2021-12-08] MEDS ORDERED: BUPIVACAINE 0.25% 75 MG/30 ML VIAL ONE (08:30)
[2021-12-08] MEDS ORDERED: BISACODYL SUPP (10 MG) 10 MG/SUPP.RECT SUPP.RECT RC PRN (09:00)
[2021-12-08] MEDS ORDERED: ONDANSETRON HCL/PF 4 MG/2 ML VIAL IVP PRN (09:00)
[2021-12-08] MEDS ORDERED: DOCUSATE SODIUM 250 MG CAPSULE PO PRN (09:00)
[2021-12-08] MEDS ORDERED: SENNOSIDES 8.6 MG TABLET PO PRN (09:00)
[2021-12-08] MEDS ORDERED: ACETAMINOPHEN 325 MG TABLET PO PRN (09:00)
[2021-12-08] MEDS ORDERED: HYDROCODONE/APAP 5/325MG TABLET PO PRN ×2 (09:00→14:00)
[2021-12-08] MEDS ORDERED: OXYBUTYNIN CHLORIDE 5 MG TABLET PO PRN (10:00)
--- NOTE | 2021-12-08 10:10 | NUR ---
RN NOTES: S/P RIGHT TOTAL KNEE ARTHROPLASTY. RECEIVED PT IN BED, ASLEEP EASILY AROUSED WITH STIMULI. NO SOB OR CARDIAC DISTRESS NOTED, AFEBRILE. VS TAKEN: BP 114/64, HR 56, 97.3F RR 18, O2 SATURATION 95%ROOM AIR. WILL REMAIN ON 30 DEGREE FOR 4HOURS PER ENDORSEMENT BY OPERATING/SURGICAL NURSE. NOTED WITH HALL CATHETER DRAINING CLEAR YELLOW COLORED URINE DRAINING VIA GRAVITY. WITH DENISE WRAP DRESSING ON RIGHT LEG NOTED WITH NO DISCHARGES NOTED, WITH GOOD CAPILLARY REFILL ON RIGHT FOOT AND ABLE TO WIGGLE TOES. ORDERS NOTED AND CARRIED OUT AND WILL MONITOR FOR ANY SIGNIFICANT CHANGES.
--- NOTE | 2021-12-08 10:15 | NUR ---
RN NOTES: STARTED D5 1/2 NS @125 ML/HR. INFUSING WELL ON RIGHT HAND GAUGE 20. PATENT AND INTACT.
[2021-12-08] MEDS ORDERED: LISI2.5T2 PO (10:56)
[2021-12-08] MEDS ORDERED: ACET-2605 PO (10:56)
[2021-12-08] MEDS ORDERED: ATOR10TA PO (10:56)
[2021-12-08] MEDS ORDERED: MELO-107 PO (10:56)
[2021-12-08] MEDS ORDERED: BISA5TAB10 PO (10:56)
[2021-12-08] MEDS ORDERED: LOSA100T31 PO (10:56)
[2021-12-08] MEDS: HYDROMORPHONE 1 MG/1 ML DISP.SYRIN IV PRN ×2 (11:53→23:12)
[2021-12-08] MEDS: ANCEF 1 GM/50 ML D5W IV SCH ×4 (15:06→22:17)
[2021-12-08] MEDS: IV D5/0.45 NACL 1,000 ML IV PRN (17:58)
--- NOTE | 2021-12-08 18:10 | NUR ---
RN NOTES: CHECKED THE PATIENT, CALLED SIR NAVIN (SON) AMERICAN INDIAN STUDIES PROFESSOR IF PATIENT COMPLAINT PAIN. PER PATIENT NO PAIN AT THIS TIME.
--- NOTE | 2021-12-08 19:02 | NUR ---
MS RN CLOSING NOTES: PATIENT IN BED AWAKE IN BED ALERT AND ORIENTED X 3 PANJABI SPEAKING, SON NAVIN ABLE TO TRANSLATE PATIENT'S NEED VIA PHONE. NO SOB OR CARDIAC DISTRESS NOTED, AFEBRILE. DENIES PAIN AT THIS TIME. IV ACCESS ON RIGHT HAND GAUGE 20 PATENT AND INTACT AND INFUSING D5 1/2 NS 1L X 125 ML/ HOUR. HALL CATHETER IN PLACE NOTED WITH CLEAR YELLOW COLORED URINE DRAINING WELL VIA GRAVITY. PATIENT NOTED WITH RIGHT DENISE WRAP NO DISCHARGES NOTED, CAPILLARY REFILL <3 SEC, PATIENT ABLE TO MOVE TOES. SAFETY PRECAUTIONS MAINTAINED: BED LOCKED AND IN LOWEST POSITION, SIDE RAILS UP X 2. CALL LIGHT IN EASY REACH FOR HELP OR ASSISTANCE. ENDORSED TO PEDIATRIC PHYSICAL THERAPY ASSISTANT FOR CONTINUITY OF CARE.
--- NOTE | 2021-12-08 19:44 | NUR ---
MS RN CLOSING NOTES: PATIENT IN BED AWAKE IN BED ALERT AND ORIENTED X 3 PANJABI SPEAKING,NEW WELL ON RM AIR,NO SOB/DISTRESS NOTED.DENIES PAIN AT THIS TIME. IV ACCESS ON RIGHT HAND GAUGE 20 PATENT AND INTACT AND INFUSING D5 1/2 NS 1L X 125 ML/ HOUR. HALL CATHETER IN PLACE NOTED WITH CLEAR YELLOW COLORED URINE DRAINING WELL VIA GRAVITY. PATIENT NOTED WITH RIGHT DENISE WRAP NO DISCHARGES/BLEEDING NOTED,SAFETY PRECAUTIONS MAINTAINED: BED LOCKED AND IN LOWEST POSITION, SIDE RAILS UP X 2. CALL LIGHT WITHIN REACH.WILL CONTINUE TO MONITOR.
[2021-12-08] MEDS ORDERED: ZOLPIDEM TARTRATE 5 MG TABLET PO PRN (22:00)
[2021-12-08] MEDS ORDERED: CLONIDINE HCL 0.1 MG TABLET PO ONE (23:00)
--- NOTE | 2021-12-08 23:12 | NUR ---
RN NOTES; PT COMPLAINED PAIN S/P R TOTAL KNEE ARTHROPLASTY 11/26.PRN DILAUDED 0.5MG INJ.NO SIGN A/R NOTED.
[2021-12-09] MEDS: IV D5/0.45 NACL 1,000 ML IV PRN (01:15)
[2021-12-09] MEDS: oxyCODONE IR immediate release 5 MG PO PRN ×4 (04:53→23:32)
--- NOTE | 2021-12-09 04:57 | NUR ---
RN NOTES; PT COMPLAINED OF PAIN RIGHT KNEE 10/26.PRN OXY 10MG WAS GIVEN.NO SIGN A/R NOTED.
--- NOTE | 2021-12-09 06:11 | NUR ---
MS RN CLOSING NOTES; PATIENT IN BED AWAKE IN BED ALERT AND ORIENTED X 3 PANJABI SPEAKING,NEW WELL ON RM AIR,NO SOB/DISTRESS NOTED.IV ACCESS ON RIGHT HAND GAUGE 20 PATENT AND INTACT AND INFUSING D5 1/2 NS 1L X 125 ML/ HOUR. HALL CATHETER IN PLACE NOTED WITH CLEAR YELLOW COLORED URINE,NO ODOR.OUTPUT 1100,PATIENT WITH RIGHT DENISE WRAP NO DISCHARGES/BLEEDING NOTED,SAFETY PRECAUTIONS MAINTAINED: BED LOCKED AND IN LOWEST POSITION, SIDE RAILS UP X 2. CALL LIGHT WITHIN REACH.WILL ENDORSED TO NEXT SHIFT.
[2021-12-09 06:38] LABS: BASOPHILS % (AUTO) 0.3 % (0.0-2.0); EOSINOPHILS % (AUTO) 0.5 % (0.0-6.0); HEMATOCRIT 33 % (33-45); HEMOGLOBIN 11.2 g/dL (11.5-14.8); LYMPHOCYTES # (AUTO) 1.3 K/uL (0.8-4.8); LYMPHOCYTES % (AUTO) 10.1 % (20.0-44.0); MEAN CORPUSCULAR HGB CONC 34 g/dl (31.0-36.0); MEAN CORPUSCULAR VOLUME 85 fL (82-100); MONOCYTES # (AUTO) 1.1 K/uL (0.1-1.30); MONOCYTES % (AUTO) 8.7 % (2.0-12.0); NEUTROPHILS # (AUTO) 10.6 K/uL (1.8-8.9); NEUTROPHILS % (AUTO) 80.4 % (43.0-81.0); PLATELET COUNT (AUTO) 206 K/uL (150-450); RED BLOOD CELL COUNT(AUTO) 3.95 MIL/uL (4.0-5.2); WHITE BLOOD COUNT (AUTO) 13.1 K/uL (4.3-11.0)
--- NOTE | 2021-12-09 07:08 | NUR ---
MS RN OPENING NOTES RECEIVED PATIENT SLEEPING IN BED, ON ROOM AIR, NO S/S OF RESPIRATORY DISTRESS OR SOB. PATIENT IS EASILY WOKEN A/Ox4. PANJABI SPEAKING. PATIENT HAS IV ACCESS R HAND #[address]. INTACT AND PATENT, NO S/S OF INFILTRATION. PATIENT HAS HALL DRAINING CLEAR YELLOW URINE. SKIN IS INTACT. SAFETY MEASURES IN PLACE: BED LOCKED AND IN LOWEST POSITION, SIDE RAILS x2, BED ALARM ON, CALL LIGHT WITHIN REACH. WILL CONTINUE TO MONITOR.
[2021-12-09 07:10] LABS: CALCIUM, SERUM 8.2 mg/dL (8.5-10.1); CREATININE 0.6 mg/dL (0.6-1.3); MAGNESIUM 1.5 mg/dL (1.8-2.4); PHOSPHORUS 3.2 mg/dL (2.5-4.9)
[2021-12-09 07:14] LABS: THYROID STIMULATING HORMONE 2.04 uIU/mL (0.358-3.74)
[2021-12-09 07:31] LABS: POTASSIUM 2.5 mmol/L (3.5-5.1)
--- NOTE | 2021-12-09 08:00 | NUR ---
RN NOTES RECEIVED CALL FROM LAB ABOUT CRITICAL POTASSIUM LEVEL. DR. MERINO AWARE, AWAITING ORDERS AT THIS.
[2021-12-09 08:30] VITALS: BP 135/61
[2021-12-09] MEDS: ASPIRIN 325 MG TABLET PO SCH (09:16)
--- NOTE | 2021-12-09 09:16 | NUR ---
RN NOTES PATIENT COMPLAINED OF PAIN 7/10 PRN OXYCODONE ADMINISTERED. WILL CONTINUE TO MONITOR.
--- NOTE | 2021-12-09 09:27 | NUR ---
WOUND CARE CONSULT: RECEIVED CONSULT IN ERROR FOR SURGICAL WOUND. DEFER TO SURGEON. DISCUSSED SKIN PROTECTION WITH NURSING STAFF. WILL SEE PRN.
[2021-12-09] MEDS ORDERED: MAGNESIUM OXIDE 400 MG TABLET PO ONE (11:00)
[2021-12-09] MEDS ORDERED: POTASSIUM CHLORIDE 20 MEQ TAB.PRT.SR PO ONE ×2 (11:00→11:30)
[2021-12-09] MEDS ORDERED: Magnesium 1GM/D5W 100ML PREMIX 100 ML IV SCH (11:00)
[2021-12-09] MEDS: HYDROMORPHONE 1 MG/1 ML DISP.SYRIN IV PRN (11:19)
--- NOTE | 2021-12-09 11:19 | NUR ---
RN NOTES PATIENT NOTED IN PAIN AFTER PHYSICAL THERAPY, COMPLAINED 10/10 GIVEN PRN DILAUDID. WILL CONTINUE TO MONITOR.
[2021-12-09] MEDS: IV NS 0.9% 1,000 ML IV SCH ×2 (11:23→23:23)
--- NOTE | 2021-12-09 11:39 | NUR ---
RN NOTES OMNICELL DID NOT HAVE THE AMOUNT OF POTASSIUM PILLS NEEDED. ITEM WAS SKIPPED AND PHARMACY WAS CALLED TO HELP PULL FROM OTHER [facility]MN[facility]. A DUPLICATE ORDER WAS CREATED IN ORDER TO PULL THE CORRECT AMOUNT NEEDED. DUPLICATE ORDER WAS NON-ADMINISTERED.
[2021-12-09 16:06] VITALS: BP 122/48
--- NOTE | 2021-12-09 17:58 | NUR ---
RN NOTES PATIENT COMPLAINED OF PAIN 10/26, PRN OXYCODONE ADMINISTERED, WILL CONTINUE TO MONITOR.
--- NOTE | 2021-12-09 18:48 | NUR ---
MS RN CLOSING NOTES PATIENT SLEEPING IN BED, STABLE ON ROOM AIR, NO S/S OF RESPIRATORY DISTRESS OR SOB. PATIENT IS EASILY WOKEN A/Ox4. PANJABI SPEAKING. PATIENT HAS IV ACCESS R HAND #20 G SL. INTACT AND PATENT, NO S/S OF INFILTRATION. PATIENT HAS HALL DRAINING CLEAR YELLOW URINE OUTPUT OF 650CC. SKIN IS INTACT. ALL PRESCRIBED MEDICATION ADMINISTERED. SAFETY MEASURES MAINTAINED: BED LOCKED AND IN LOWEST POSITION, SIDE RAILS x2, BED ALARM ON, CALL LIGHT WITHIN REACH. WILL CONTINUE TO MONITOR.
--- NOTE | 2021-12-09 19:48 | NUR ---
MS RN OPENING NOTES: RECEIVED PATIENT IN BED AWAKE IN BED ALERT AND ORIENTED X 3 PANJABI SPEAKING,NEW WELL ON RM AIR,NO SOB/DISTRESS NOTED.DENIES PAIN AT THIS TIME. IV ACCESS ON RIGHT HAND GAUGE 20 PATENT AND INTACT,PATIENT WITH RIGHT DENISE WRAP NO DISCHARGES/BLEEDING NOTED,SAFETY PRECAUTIONS MAINTAINED: BED LOCKED AND IN LOWEST POSITION, SIDE RAILS UP X 2. CALL LIGHT WITHIN REACH.WILL CONTINUE TO MONITOR.
[2021-12-09 20:00] VITALS: BP 130/63
--- NOTE | 2021-12-10 06:17 | NUR ---
MS RN CLOSING NOTES PATIENT IN BED AWAKE IN BED ALERT AND ORIENTED X 3 PANJABI SPEAKING,NEW WELL ON RM AIR,NO SOB/DISTRESS NOTED.IV ACCESS ON RIGHT HAND GAUGE 20 PATENT AND INTACT AND INFUSING NS @75 ML/ HOUR. HALL CATHETER IN PLACE NOTED WILLIAM COLORED URINE,NO ODOR.PATIENT WITH RIGHT DENISE WRAP NO DISCHARGES/BLEEDING NOTED,SAFETY PRECAUTIONS MAINTAINED: BED LOCKED AND IN LOWEST POSITION, SIDE RAILS UP X 2. CALL LIGHT WITHIN REACH.WILL ENDORSED TO NEXT SHIFT.
--- NOTE | 2021-12-10 07:44 | NUR ---
RN OPENING NOTES PATIENT IN BED AWAKE IN BED ALERT AND ORIENTED X 3 PANJABI SPEAKING. ON ROOM AIR,NO SOB/DISTRESS NOTED.IV ACCESS ON RIGHT HAND GAUGE 20 PATENT AND INTACT AND INFUSING NS @75 ML/ HOUR. HALL CATHETER IN PLACE NOTED WILLIAM COLORED URINE,NO ODOR.PATIENT WITH RIGHT DENISE WRAP NO DISCHARGES/BLEEDING NOTED,SAFETY PRECAUTIONS MAINTAINED: BED LOCKED AND IN LOWEST POSITION, SIDE RAILS UP X 2. CALL LIGHT WITHIN REACH.WILL CONTINUE PLAN OF CARE AND ANTICIPATE NEEDS.
[2021-12-10 08:03] LABS: CALCIUM, SERUM 8.2 mg/dL (8.5-10.1); CREATININE 0.6 mg/dL (0.6-1.3); MAGNESIUM 1.7 mg/dL (1.8-2.4); POTASSIUM 3.2 mmol/L (3.5-5.1)
[2021-12-10] MEDS: ASPIRIN 325 MG TABLET PO SCH (09:11)
[2021-12-10] MEDS: HYDROMORPHONE 1 MG/1 ML DISP.SYRIN IV PRN ×3 (09:19→22:47)
[2021-12-10] MEDS ORDERED: ASPI-992 PO (09:52)
[2021-12-10] MEDS ORDERED: HYDR-4303 PO (09:52)
[2021-12-10] MEDS ORDERED: POTASSIUM CHLORIDE 20 MEQ TAB.PRT.SR PO ONE (10:00)
[2021-12-10] MEDS ORDERED: MAGNESIUM OXIDE 400 MG TABLET PO ONE (10:00)
[2021-12-10] MEDS ORDERED: MAGNESIUM OXIDE 400 MG TABLET PO SCH (10:00)
[2021-12-10] MEDS: oxyCODONE IR immediate release 5 MG PO PRN (10:09)
[2021-12-10] MEDS ORDERED: diphenhydrAMINE HCL 25 MG CAPSULE PO PRN (11:30)
[2021-12-10 11:31] VITALS: BP 136/59
--- NOTE | 2021-12-10 15:20 | NUR ---
DURING ROUTINE VITAL SIGNS ASSESSMENT PATIENT WAS NOTED TO HAVE OXYGEN SATURATION LEVEL IN THE MID 70S. APPLIED SUPPLEMENTAL OXYGEN 5 LITERS VIA NASAL CANULA. ON REASSESSMENT OXYGEN SATURATION WAS NOTED AT 95%. MD [place].
[2021-12-10 16:28] VITALS: BP 125/58
--- NOTE | 2021-12-10 18:49 | NUR ---
RN CLOSING NOTES PATIENT IN BED AWAKE IN BED ALERT AND ORIENTED X 3 PANJABI SPEAKING. ON ROOM AIR,NO SOB/DISTRESS NOTED.IV ACCESS ON RIGHT HAND GAUGE 20 PATENT AND INTACT AND INFUSING NS @75 ML/ HOUR. HALL CATHETER DISCONTINUED PER MD, 900 MLS OUTPUT DURING SHIFT. PATIENT WITH RIGHT DENISE WRAP NO DISCHARGES/BLEEDING NOTED,SAFETY PRECAUTIONS MAINTAINED: BED LOCKED AND IN LOWEST POSITION, SIDE RAILS UP X 2. CALL LIGHT WITHIN REACH.WILL ENDORSE TO NIGHTSHIFT RN FOR CONTINUATION OF CARE.
--- NOTE | 2021-12-10 19:30 | NUR ---
RN OPENING NOTE PATIENT AWAKE IN BED. A/O X4. NO S/S OF DISTRESS, BREATHING WITHOUT DIFFICULTY ON ROOM AIR. SAFETY MEASURES IN PLACE: BED LOCKED AND AT LOWEST POSITION, RAILS UP X2, CALL ARORA WITHIN REACH. WILL CONTINUE TO MONITOR PATIENT.
[2021-12-10 20:00] VITALS: BP 130/68
[2021-12-11 06:35] LABS: BASOPHILS % (AUTO) 0.2 % (0.0-2.0); HEMATOCRIT 31 % (33-45); HEMOGLOBIN 10.2 g/dL (11.5-14.8); LYMPHOCYTES # (AUTO) 1.2 K/uL (0.8-4.8); MEAN CORPUSCULAR HGB CONC 34 g/dl (31.0-36.0); MEAN CORPUSCULAR VOLUME 86 fL (82-100); MONOCYTES # (AUTO) 1.3 K/uL (0.1-1.30); MONOCYTES % (AUTO) 8.9 % (2.0-12.0); NEUTROPHILS # (AUTO) 12.3 K/uL (1.8-8.9); NEUTROPHILS % (AUTO) 81.9 % (43.0-81.0); PLATELET COUNT (AUTO) 181 K/uL (150-450); RED BLOOD CELL COUNT(AUTO) 3.57 MIL/uL (4.0-5.2)
--- NOTE | 2021-12-11 06:50 | NUR ---
RN CLOSING NOTE PATIENT AWAKE IN BED. A/OX3. NO S/S OF DISTRESS, BREATHING WITHOUT DIFFICULTY ON ROOM AIR. L-HAND #20 SL INTACT AND PATENT. SAFETY MEASURES IN PLACE: BED LOCKED AND AT LOWEST POSITION, RAILS UP X2, CALL ARORA WITHIN REACH. WILL ENDORSE TO NEXT SHIFT FOR CLAIRE
[2021-12-11 07:05] LABS: THYROID STIMULATING HORMONE 1.645 uIU/mL (0.358-3.74); URIC ACID 4.7 mg/dL (2.6-7.2)
[2021-12-11 07:13] LABS: CALCIUM, SERUM 8.3 mg/dL (8.5-10.1); CREATININE 0.6 mg/dL (0.6-1.3); MAGNESIUM 1.7 mg/dL (1.8-2.4); PHOSPHORUS 2.6 mg/dL (2.5-4.9); POTASSIUM 3.3 mmol/L (3.5-5.1)
--- NOTE | 2021-12-11 07:40 | NUR ---
MS RN CLOSING NOTE PATIENT AWAKE IN BED. SPEAKS JANAE ONLY. A/OX3-4. NO S/S OF RESPIRATORY DISTRESS, DENIES PAIN. BREATHING WITHOUT DIFFICULTY ON ROOM AIR. L-HAND #20 SL INTACT AND PATENT. SAFETY MEASURES IN PLACE: BED LOCKED AND AT LOWEST POSITION, RAILS UP X2, CALL ARORA WITHIN REACH. WILL CONTINUE TO MONITOR DURING MY SHIFT. Addendum: 12/11/21 at 0902 by TONO MARTINEZ RN MS RN OPENING NOTE
[2021-12-11 08:00] VITALS: BP 138/68
[2021-12-11] MEDS: ASPIRIN 325 MG TABLET PO SCH (08:15)
[2021-12-11] MEDS ORDERED: POTASSIUM CHLORIDE 20 MEQ TAB.PRT.SR PO ONE (09:30)
[2021-12-11] MEDS ORDERED: MAGNESIUM OXIDE 400 MG TABLET PO SCH (09:30)
[2021-12-11] MEDS ORDERED: POTASSIUM CHLORIDE 20 MEQ TAB.PRT.SR PO SCH (10:00)
[2021-12-11] MEDS ORDERED: MAGNESIUM OXIDE 400 MG TABLET PO ONE (10:00)
[2021-12-11] MEDS: oxyCODONE IR immediate release 5 MG PO PRN (11:00)
--- NOTE | 2021-12-11 12:21 | NUR ---
RN NOTES REMOVED CPM FOR THE L KNEE AT 1215 PATIENT NOT COMPLAINING OF ANY PAIN.
[2021-12-11 16:00] VITALS: BP 122/54
--- NOTE | 2021-12-11 18:50 | NUR ---
MS RN CLOSING NOTE PATIENT AWAKE IN BED. SPEAKS JANAE ONLY. A/OX3-4. NO S/S OF RESPIRATORY DISTRESS. ON ROOM AIR. DENIES PAIN. L-HAND #20 SL INTACT AND PATENT. DUE MEDS GIVEN. SAFETY MEASURES IN PLACE: BED LOCKED AND AT LOWEST POSITION, RAILS UP X2, CALL ARORA WITHIN REACH. ENDORSED TO PROVIDER SCRIBE NURSE.
[2021-12-11 20:50] VITALS: BP 153/89
--- NOTE | 2021-12-11 21:02 | NUR ---
RN OPENING NOTE PATIENT AWAKE IN BED. A/OX3. NO S/S OF DISTRESS, BREATHING WITHOUT DIFFICULTY ON ROOM AIR. L-HAND #20 SL INTACT AND PATENT. SAFETY MEASURES IN PLACE: BED LOCKED AND AT LOWEST POSITION, RAILS UP X2, CALL ARORA WITHIN REACH. WILL CONTINUE TO MONITOR PATIENT.
[2021-12-11] MEDS: HYDROMORPHONE 1 MG/1 ML DISP.SYRIN IV PRN (21:50)
--- NOTE | 2021-12-11 22:08 | NUR ---
RN NOTE PATIENT STATED SHE HAD PAIN AND WANTED PAIN MEDS - HER PAIN HAVING BEEN A 9/10. THIS RN WENT TO OBTAIN THE DILAUDID 1MG. THE ORDER IS TO WASTE 0.5ML (0.5 MG). I WASTED WITH CHAI BLACK. RETURNING TO PATIENT'S ROOM PATIENT DECLINED THE MEDICATION. I WENT TO WASTE THE REMAINING 0.5MG, BUT THE SYSTEM WOULD NOT RECOGNIZE IT. CHARGE NURSE, KAYCE, WAS NOTIFIED. I WAS INSTRUCTED TO WASTE REMAINING 0.5MG IN PROPER DISPOSAL BIN WITH WITNESS. I WASTED REMAINING AMOUNT WITNESSED BY CHAI HAYS. I WILL CONTACT PHARMACY IN A.M. TO LET LUIS KNOW.
--- NOTE | 2021-12-12 05:42 | NUR ---
RN NOTE DR. RODRIGUEZ CALLED TO INQUIRE INTO AND DISCUSS PATIENT'S CURRENT STATE. PATIENT STABLE; WILL CONTINUE TO MONITOR.
[2021-12-12] MEDS: oxyCODONE IR immediate release 5 MG PO PRN ×2 (06:15→18:07)
--- NOTE | 2021-12-12 07:07 | NUR ---
RN CLOSING NOTE PATIENT AWAKE IN BED. A/OX3. NO S/S OF DISTRESS, BREATHING WITHOUT DIFFICULTY ON ROOM AIR. L-HAND #20 SL INTACT AND PATENT. SAFETY MEASURES STILL IN PLACE: BED LOCKED AND AT LOWEST POSITION, RAILS UP X2, CALL ARORA WITHIN REACH. WILL ENDORSE TO NEXT SHIFT FOR CLAIRE.
[2021-12-12 07:26] LABS: CALCIUM, SERUM 8.5 mg/dL (8.5-10.1); CREATININE 0.6 mg/dL (0.6-1.3); POTASSIUM 3.8 mmol/L (3.5-5.1)
--- NOTE | 2021-12-12 07:31 | NUR ---
RN NOTE CONTACTED PHARMACY. RAVEN IS THE PHARMACIST FOR TODAY. I EXPLAINED THE ISSUE WITH THE OMNICELLS, AND THE ISSUE WITH THE WASTING OF THE DILAUDID MENTIONED IN PREVIOUS NOTE. SAMPLE WORKER, ALISIA, NOTIFIED WELL. ALISIA WAS SHOWN THE OMNICELL WHICH HAS ADDITIONAL GLITCHES OCCURRING WITH HER PRESENT.
--- NOTE | 2021-12-12 07:50 | NUR ---
MS RN OPENING NOTE PATIENT AWAKE IN BED, SITTING COMFORTABLY. SPEAKS JANAE ONLY. A/OX4. NO S/S OF RESPIRATORY DISTRESS, DENIES PAIN, LAST PRN PAIN MED WAS AT 0630. BREATHING WITHOUT DIFFICULTY ON ROOM AIR. L-HAND #20 SL INTACT AND PATENT. SAFETY MEASURES IN PLACE: BED LOCKED AND AT LOWEST POSITION, RAILS UP X2, CALL ARORA WITHIN REACH. WILL CONTINUE TO MONITOR DURING MY SHIFT.
[2021-12-12] MEDS: ASPIRIN 325 MG TABLET PO SCH (08:00)
[2021-12-12 08:17] VITALS: BP 115/61
--- NOTE | 2021-12-12 14:30 | NUR ---
SS consult requested for DC plans. Pt. is a 71-year-old female who was admitted to [facility] on 12/08/21 due to right knee OA. Pt. is a Yohannes speaking only. land use planner attempted to use the iPad for translation but no esthetician makeup artist picked up the phone. land use planner mentioned the pt.s sons name and pt. gave permission for the digital sales planner to call. Upon SS consult, pt. was not willing to answer any questions. Pt. appeared irritable and guarded. Pt. appeared unkempt and continued to moan in pain. Pt.s son Nuvia ([phone]) stated that the pt. was upset because she wanted to discharge from [facility]. Pt.s son Nuvia ([phone]) stated that the pt. lives at home with her daughter Marcy at [address] [address]. Nuvia ([phone]) stated that she has Rollator walker and a shower chair. Nuvia ([phone]) stated that the pt. was supposed to discharge yesterday. land use planner followed up with CM. [facility] stated that insurance needed to be authorized for home health services prior to discharge. CHAI Kraft explained to the son that insurance needed to be authorized for home health services. [facility] stated they will arrange transport upon discharge. Plan: Upon discharge, pt. will return to [address] [place] [address] with her daughter Marcy and receive home health services.
[2021-12-12 15:58] VITALS: BP 120/63
--- NOTE | 2021-12-12 18:40 | NUR ---
MS DIRECTOR OF ACQUISITION MARKETING NOTE PT DISCHARGED TO HOME IN STABLE CONDITION. PT A/O X4, ABLE TO MAKE NEEDS KNOWN. ON RA, TOLERATING WELL WITH SPO2 98%. NO SOB NOTED. NOT IN ANY SIGN OF RESPIRATORY DISTRESS. PATIENT WAS SUPPOSED TO BE TRANSFERRED TO SNF BUT SON REFUSED. HOMEHEALTH IS STILL PENDING BUT SON CANNOT WAIT FOR DC ANYMORE. ADVISED TO FOLLOW UP WITH CM, GIVEN THE NUMBER TO CALL. VITAL SIGNS TAKEN, STABLE, AND RECORDED. PT'S SKIN INTACT. S/P R KNEE ARTHROPLASTY DRESSING IN PLACE WITH NO BLEEDING OR DRAINAGE. DENIES PAIN OR DISCOMFORT AT THIS TIME. ALL BELONGINGS ACCOUNTED FOR. DISCHARGED INSTRUCTIONS AND HEALTH TEACHINGS GIVEN TO FLASH REDDY, VERBALIZED UNDERSTANDING. IV ACCESS IN LH G #20 SL REMOVED WITH NO ACTIVE BLEEDING NOTED. DRY PRESSURE DRESSING APPLIED AT SITE. PT LEFT THE UNIT AT 1830 VIA WHEELCHAIR ACCOMPANIED BY ME TO THE PARKING LOT. PATIENT SAFELY TRANSFERRED TO SON'S CAR. DR BENTON AND CHARGE NURSE NILTON AWARE OF DISCHARGE.
== END 2021-12-12 18:30 | disposition home health service (06) | DRG 326 ==
LOC: DS 05:03 → MED 05:04
PROVIDERS: ADMIT Nurse Practitioner Acute Care; ATTEND Internal Medicine
PROC: 0SRC0J9 Replacement of Right Knee Joint with Synthetic Substitute, Cemented, Open Approach (ICD-10-PCS; principal; 2021-12-08)
DX: M17.11 Unilateral primary osteoarthritis, right knee (principal); E22.2 Syndrome of inappropriate secretion of antidiuretic hormone; I10 Essential (primary) hypertension; E86.1 Hypovolemia; E11.9 Type 2 diabetes mellitus without complications; E78.5 Hyperlipidemia, unspecified; Z96.652 Presence of left artificial knee joint; E66.9 Obesity, unspecified; Z68.34 Body mass index [BMI] 34.0-34.9, adult; E87.6 Hypokalemia; E83.42 Hypomagnesemia; T50.2X5A Adverse effect of carbonic-anhydrase inhibitors, benzothiadiazides and other diuretics, initial encounter; Y92.009 Unspecified place in unspecified non-institutional (private) residence as the place of occurrence of the external cause; D63.8 Anemia in other chronic diseases classified elsewhere; M19.90 Unspecified osteoarthritis, unspecified site; Z20.822 Contact with and (suspected) exposure to COVID-19
CPT/HCPCS: 36415; 80048-TC; 82962-TC; 83735-TC; 84100-TC; 84443-TC; 84550-TC; 85025-TC; 85027-TC; 87081-TC; 94799-TC; 97110-TC; 97116-TC; 97530-TC; A4217; C1713; C1776; G0378; J0690; J1170; J3010; J3475; J3490; J7030; J7060; L1830